=== PATIENT | male | born 1975 | race Caucasian/White ===

== ENCOUNTER 2019-02-03 14:47 | Emergency (ER) | payer OTHER ==
[~2019-02-03] VITALS: Ht 167.6 cm; Wt 179.2 kg
[2019-02-03 15:03] VITALS: BP 154/83; PULSE 100; RESP 18; Ht 167.6 cm; Wt 179.2 kg
[2019-02-03] MEDS ORDERED: KETOROLAC 60 MG INJ IM STA (16:21)
[2019-02-03] MEDS ORDERED: TRAM50TA2 PO (17:41)
[2019-02-03] MEDS ORDERED: IBUP-1542 PO (17:41)
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
== END 2019-02-03 18:00 | disposition home or self-care (01) ==
LOC: FTE 14:47
DX: S00.83XA Contusion of other part of head, initial encounter (principal); E66.9 Obesity, unspecified; V49.49XA Driver injured in collision with other motor vehicles in traffic accident, initial encounter; Z68.44 Body mass index [BMI] 60.0-69.9, adult
CPT/HCPCS: 70450; 73030; 96372; J1885; Z7502